=== PATIENT | male | born 1980 | race Caucasian/White ===

== ENCOUNTER 2017-09-11 20:24 | Inpatient (IN) | payer SELFPAY ==
[~2017-09-11] VITALS: Ht 188 cm; Wt 95.2 kg
[~2017-09-11 20:24] MED LIST: ETHA400 PO; ISON100I IM; NOCURR; PYRA500 PO; PYRI50CA PO; RIFA300 PO
[2017-09-11] MEDS ORDERED: HYDROmorphone 2 MG/ML SYRINGE IVP ONE (21:45)
[2017-09-11] MEDS ORDERED: ONDANSETRON HCL 4 MG/2 ML VIAL IVP ONE (21:45)
[2017-09-11] MEDS ORDERED: SODIUM CHLORIDE 0.9% 2,000 ML IV ONE (21:45)
[2017-09-11 21:54] LABS: HEMATOCRIT 31.9 % (41-53); HEMOGLOBIN 10.6 g/dL (13.5-17.5); MEAN CORPUSCULAR HEMOGLOBIN 27.7 pg (26.0-34.0); MEAN CORPUSCULAR HGB CONC 33.1 G/dL (31.0-37.0); MEAN CORPUSCULAR VOLUME 84 fL (80-100); PLATELET COUNT (AUTO) 257 K/uL (150-450); RED BLOOD CELL COUNT(AUTO) 3.82 MIL/uL (4.50-5.90); RED CELL DISTRIBUTION WIDTH 15.4 % (11.5-14.5)
[2017-09-11 21:58] LABS: APPEARANCE,URINE CLOUDY (CLEAR); GLUCOSE, URINE (UA) NEGATIVE (NEGATIVE); KETONES,URINE NEGATIVE (NEGATIVE); LEUKOCYTE ESTERASE ,URINE LARGE (NEGATIVE); OCCULT BLOOD,URINE LARGE (NEGATIVE); PROTEIN,URINE TRACE (NEGATIVE)
[2017-09-11 22:14] LABS: WBC,URINE >100 /HPF (0-5)
[2017-09-11 22:15] LABS: SQUAMOUS EPITHELIAL CELL,UR Few /LPF (None Seen)
[2017-09-11 22:16] LABS: LACTIC ACID 1.5 mmol/L (0.4-2.0)
[2017-09-11 22:20] LABS: ANION GAP 6 mmol/L (8-16); CALCIUM, TOTAL 8.1 mg/dL (8.8-10.5); CARBON DIOXIDE 28 mmol/L (22-29); CHLORIDE 99 mmol/L (98-107); CREATININE 1.26 mg/dL (0.60-1.30); GLOMERULAR FILTR. RATE CALC > 60 mL/min (>60); POTASSIUM 4.2 mmol/L (3.5-5.1); SODIUM SERUM 133 mmol/L (136-145); UREA NITROGEN, BLOOD 16 mg/dL (7-18)
[2017-09-11 22:25] LABS: ALANINE AMINOTRANSFERASE 39 U/L (12-78); ALBUMIN 2.4 g/dL (3.4-5.0); ASPARTATE AMINOTRANSFERASE 34 U/L (15-37); BILIRUBIN,TOTAL 0.2 mg/dL (0.1-1.0); TOTAL PROTEIN, SERUM 9.2 g/dL (6.4-8.2)
[2017-09-11 22:26] LABS: BAND NEUTROPHILS % (MANUAL) 16 % (1-5); LYMPHOCYTES % (MANUAL) 12 % (22-44); TOTAL CELLS COUNTED 100
[2017-09-11] MEDS ORDERED: OxyCODONE HCL/ACETAMINOPHEN 5-325 MG TABLET PO PRN (22:30)
[2017-09-11] MEDS ORDERED: LIDOCAINE HCL 1% 10 ML VIAL INJ ONE (22:30)
[2017-09-11] MEDS ORDERED: LIDOCAINE HCL 1% 20 ML VIAL INJ ONE (22:30)
[2017-09-11] MEDS ORDERED: SODIUM CHLORIDE 0.9% 1,000 ML IV ONE (22:30)
[2017-09-11] MEDS ORDERED: ALBUTEROL SULFATE 2.5 MG/0.5 ML NEB SOLUTION NEB PRN (22:30)
[2017-09-11] MEDS ORDERED: MAGNESIUM HYDROXIDE SUSPENSION 30 ML UDCUP PO PRN (22:30)
[2017-09-11] MEDS ORDERED: MORPHINE SULFATE 2 MG/ML SYRINGE IVP PRN (22:30)
[2017-09-11] MEDS ORDERED: ACETAMINOPHEN 325 MG TABLET PO PRN (22:30)
[2017-09-11] MEDS: CefTRIAXone SODIUM 2 GM in DEXTROSE 5%-WATER 50 ML IV SCH (22:43)
[2017-09-11] MEDS: SODIUM CHLORIDE 0.9% 1,000 ML IV SCH (22:44)
[2017-09-11 23:26] LABS: GLUCOSE, CSF 70 mg/dL (50-80); TOTAL PROTEIN, CSF 35 mg/dL (15-45)
[2017-09-12] VITALS (7 sets, daily range): BP systolic 103–134; BP diastolic 65–80
[2017-09-12] LABS: APPEARANCE,CSF CLEAR (CLEAR); COLOR,CSF COLORLESS (COLORLESS)
[2017-09-12] MEDS ORDERED: -PHARMACY VACCINE NOTE- MISC ONE ×2 (02:15)
[2017-09-12] MEDS ORDERED: INFLUENZA VIRUS VACCINE QVS 2017-18 (3YR+)/PF 60 MCG/0.5 ML SYRINGE IM ONE (02:15)
[2017-09-12] MEDS: SODIUM CHLORIDE 0.9% 1,000 ML IV SCH ×3 (06:30→22:54)
[2017-09-12 06:51] LABS: ANION GAP 7 mmol/L (8-16); CARBON DIOXIDE 26 mmol/L (22-29); CHLORIDE 102 mmol/L (98-107); GLOMERULAR FILTR. RATE CALC > 60 mL/min (>60); POTASSIUM 3.9 mmol/L (3.5-5.1); SODIUM SERUM 135 mmol/L (136-145); UREA NITROGEN, BLOOD 10 mg/dL (7-18)
[2017-09-12] MEDS: DOCUSATE SODIUM 100 MG CAPSULE PO SCH ×2 (09:23→20:55)
[2017-09-12] MEDS: PANTOPRAZOLE SODIUM 40 MG DR TABLET PO SCH (09:24)
[2017-09-12 10:57] LABS: BASOPHILS % (AUTO) 0.1 % (0.0-2.0); EOSINOPHILS % (AUTO) 0.3 % (1.0-6.0); HEMATOCRIT 31.1 % (41-53); HEMOGLOBIN 10.2 g/dL (13.5-17.5); LYMPHOCYTES # (AUTO) 1.4 K/uL (1.0-4.8); LYMPHOCYTES % (AUTO) 14.3 % (22.0-44.0); MEAN CORPUSCULAR HEMOGLOBIN 27.7 pg (26.0-34.0); MEAN CORPUSCULAR HGB CONC 32.9 G/dL (31.0-37.0); MEAN CORPUSCULAR VOLUME 84 fL (80-100); MONOCYTES # (AUTO) 0.3 K/uL (0.1-1.0); MONOCYTES % (AUTO) 3.5 % (2.0-9.0); NEUTROPHILS # (AUTO) 8.3 K/uL (1.8-7.7); NEUTROPHILS % (AUTO) 81.8 % (40.0-70.0); PLATELET COUNT (AUTO) 251 K/uL (150-450); RED BLOOD CELL COUNT(AUTO) 3.71 MIL/uL (4.50-5.90); RED CELL DISTRIBUTION WIDTH 15.5 % (11.5-14.5); WHITE BLOOD COUNT (AUTO) 10.1 K/uL (4.5-11.0)
[2017-09-12] MEDS: CefTRIAXone SODIUM 2 GM in DEXTROSE 5%-WATER 50 ML IV SCH (22:54)
[2017-09-13 04:41] VITALS: BP 103/56
[2017-09-13 08:18] VITALS: BP 121/80
[2017-09-13] MEDS: PANTOPRAZOLE SODIUM 40 MG DR TABLET PO SCH (09:51)
[2017-09-13] MEDS: SODIUM CHLORIDE 0.9% 1,000 ML IV SCH ×3 (09:51→22:33)
[2017-09-13] MEDS: DOCUSATE SODIUM 100 MG CAPSULE PO SCH ×2 (09:51→20:50)
[2017-09-13 11:37] VITALS: BP 117/74
[2017-09-13 15:57] VITALS: BP 109/72
[2017-09-13 19:34] VITALS: BP 102/70
[2017-09-13] MEDS: CefTRIAXone SODIUM 2 GM in DEXTROSE 5%-WATER 50 ML IV SCH (22:34)
[2017-09-13 23:33] VITALS: BP 104/64
[2017-09-14] MEDS ORDERED: VANCOMYCIN HCL 1 GM/D5% WATER 200 ML IV ONE
[2017-09-14 04:46] VITALS: BP 104/58
[2017-09-14] MEDS: SODIUM CHLORIDE 0.9% 1,000 ML IV SCH (06:30)
[2017-09-14 06:55] LABS: ANION GAP 8 mmol/L (8-16); CALCIUM, TOTAL 8.8 mg/dL (8.8-10.5); CARBON DIOXIDE 27 mmol/L (22-29); CHLORIDE 102 mmol/L (98-107); CREATININE 1.08 mg/dL (0.60-1.30); GLOMERULAR FILTR. RATE CALC > 60 mL/min (>60); POTASSIUM 3.9 mmol/L (3.5-5.1); SODIUM SERUM 137 mmol/L (136-145); UREA NITROGEN, BLOOD 14 mg/dL (7-18)
[2017-09-14 07:50] VITALS: BP 119/65
[2017-09-14] MEDS: PANTOPRAZOLE SODIUM 40 MG DR TABLET PO SCH (09:10)
[2017-09-14] MEDS: DOCUSATE SODIUM 100 MG CAPSULE PO SCH ×2 (09:10→21:00)
[2017-09-14] MEDS: VANCOMYCIN HCL 1.25 GM in DEXTROSE 5%-WATER 250 ML IV SCH ×2 (09:10→15:31)
[2017-09-14 12:51] VITALS: BP 118/57
[2017-09-14] MEDS ORDERED: ISON300 PO (13:39)
[2017-09-14 16:28] VITALS: BP 104/60
[2017-09-14 17:00] LABS: PERCENT CD4 CELLS 19.9 % (30.8-58.5)
[2017-09-14 20:01] VITALS: BP 101/64
[2017-09-14] MEDS ORDERED: WATER IV SCH (23:00)
[2017-09-14] MEDS ORDERED: CEFTRIAXONE SODIUM IV SCH (23:00)
[2017-09-14] MEDS ORDERED: DEXTROSE 5% IV SCH (23:00)
[2017-09-14] MEDS: CefTRIAXone SODIUM 2 GM in DEXTROSE 5%-WATER 50 ML IV SCH (23:02)
[2017-09-15] VITALS (7 sets, daily range): BP systolic 96–116; BP diastolic 61–75
[2017-09-15 06:53] LABS: ANION GAP 8 mmol/L (8-16); CARBON DIOXIDE 28 mmol/L (22-29); CHLORIDE 101 mmol/L (98-107); CREATININE 1.08 mg/dL (0.60-1.30); GLOMERULAR FILTR. RATE CALC > 60 mL/min (>60); SODIUM SERUM 137 mmol/L (136-145); UREA NITROGEN, BLOOD 21 mg/dL (7-18)
[2017-09-15] MEDS: PANTOPRAZOLE SODIUM 40 MG DR TABLET PO SCH (08:30)
[2017-09-15] MEDS: CefTRIAXone SODIUM 2 GM in DEXTROSE 5%-WATER 50 ML IV SCH ×2 (08:30→19:57)
[2017-09-15] MEDS: DOCUSATE SODIUM 100 MG CAPSULE PO SCH ×2 (08:30→19:57)
[2017-09-15 09:15] LABS: ABSOLUTE CD4 COUNT 318 /uL (359-1519); LYMPHS % FOR CD4 COUNT 24 % (Not Estab.); LYMPHS ABS FOR CD4 COUNT 1.6 x10E3/uL (0.7-3.1); WBC FOR CD4 COUNT 6.6 x10E3/uL (3.4-10.8)
[2017-09-16 05:09] VITALS: BP 97/64
[2017-09-16] MEDS: CefTRIAXone SODIUM 2 GM in DEXTROSE 5%-WATER 50 ML IV SCH ×2 (07:53→20:12)
[2017-09-16] MEDS: DOCUSATE SODIUM 100 MG CAPSULE PO SCH ×2 (07:54→21:00)
[2017-09-16] MEDS: PANTOPRAZOLE SODIUM 40 MG DR TABLET PO SCH (07:54)
[2017-09-16 08:12] VITALS: BP 108/62
[2017-09-16 08:44] LABS: ANION GAP 6 mmol/L (8-16); CALCIUM, TOTAL 8.7 mg/dL (8.8-10.5); CARBON DIOXIDE 31 mmol/L (22-29); CHLORIDE 100 mmol/L (98-107); CREATININE 1.13 mg/dL (0.60-1.30); GLOMERULAR FILTR. RATE CALC > 60 mL/min (>60); POTASSIUM 4.2 mmol/L (3.5-5.1); SODIUM SERUM 137 mmol/L (136-145); UREA NITROGEN, BLOOD 21 mg/dL (7-18)
[2017-09-16 11:31] VITALS: BP 95/58
[2017-09-16 15:40] VITALS: BP 101/63
[2017-09-16 20:07] VITALS: BP 115/64
[2017-09-17 00:03] VITALS: BP 109/58
[2017-09-17 04:45] VITALS: BP 108/69
[2017-09-17 06:28] LABS: BASOPHILS # (AUTO) 0.05 K/uL (0.00-0.20); BASOPHILS % (AUTO) 1.2 % (0.0-2.0); EOSINOPHILS # (AUTO) 0.12 K/uL (0.00-0.70); EOSINOPHILS % (AUTO) 2.93 % (1.0-6.0); LYMPHOCYTES # (AUTO) 1.5 K/uL (1.0-4.8); LYMPHOCYTES % (AUTO) 35.7 % (22.0-44.0); MEAN CORPUSCULAR HEMOGLOBIN 26.5 pg (26.0-34.0); MEAN CORPUSCULAR HGB CONC 31.5 G/dL (31.0-37.0); MEAN CORPUSCULAR VOLUME 84 fL (80-100); MONOCYTES # (AUTO) 0.4 K/uL (0.1-1.0); NEUTROPHILS # (AUTO) 2.2 K/uL (1.8-7.7); NEUTROPHILS % (AUTO) 51.2 % (40.0-70.0); PLATELET COUNT (AUTO) 144 K/uL (150-450); RED BLOOD CELL COUNT(AUTO) 4.15 MIL/uL (4.50-5.90); RED CELL DISTRIBUTION WIDTH 15.6 % (11.5-14.5); WHITE BLOOD COUNT (AUTO) 4.2 K/uL (4.5-11.0)
[2017-09-17 06:57] LABS: ANION GAP 5 mmol/L (8-16); CALCIUM, TOTAL 8.3 mg/dL (8.8-10.5); CARBON DIOXIDE 31 mmol/L (22-29); CHLORIDE 101 mmol/L (98-107); CREATININE 1.11 mg/dL (0.60-1.30); GLOMERULAR FILTR. RATE CALC > 60 mL/min (>60); POTASSIUM 4.2 mmol/L (3.5-5.1); SODIUM SERUM 137 mmol/L (136-145); UREA NITROGEN, BLOOD 20 mg/dL (7-18)
[2017-09-17 08:11] VITALS: BP 104/57
[2017-09-17] MEDS: CefTRIAXone SODIUM 2 GM in DEXTROSE 5%-WATER 50 ML IV SCH ×2 (09:14→21:52)
[2017-09-17] MEDS: DOCUSATE SODIUM 100 MG CAPSULE PO SCH ×2 (09:14→21:53)
[2017-09-17] MEDS: PANTOPRAZOLE SODIUM 40 MG DR TABLET PO SCH (09:14)
[2017-09-17 11:52] VITALS: BP 96/50
[2017-09-17 15:54] VITALS: BP 109/67
[2017-09-17 20:08] VITALS: BP 123/69
[2017-09-18 00:03] VITALS: BP 102/63
[2017-09-18 04:42] VITALS: BP 116/66
[2017-09-18 06:21] LABS: ANION GAP 6 mmol/L (8-16); CALCIUM, TOTAL 8.4 mg/dL (8.8-10.5); CARBON DIOXIDE 29 mmol/L (22-29); CHLORIDE 102 mmol/L (98-107); CREATININE 1.07 mg/dL (0.60-1.30); GLOMERULAR FILTR. RATE CALC > 60 mL/min (>60); POTASSIUM 4.2 mmol/L (3.5-5.1); SODIUM SERUM 137 mmol/L (136-145); UREA NITROGEN, BLOOD 19 mg/dL (7-18)
[2017-09-18 07:12] VITALS: BP 110/58
[2017-09-18] MEDS: DOCUSATE SODIUM 100 MG CAPSULE PO SCH (09:41)
[2017-09-18] MEDS: CefTRIAXone SODIUM 2 GM in DEXTROSE 5%-WATER 50 ML IV SCH (09:41)
[2017-09-18] MEDS: PANTOPRAZOLE SODIUM 40 MG DR TABLET PO SCH (09:41)
[2017-09-18 11:49] VITALS: BP 112/60
== END 2017-09-18 13:55 | disposition home or self-care (01) | DRG 871 ==
LOC: EMS 20:35 → 6N 22:30
PROVIDERS: ADMIT Internal Medicine; ATTEND Internal Medicine
DX: A40.3 Sepsis due to Streptococcus pneumoniae (principal); R65.21 Severe sepsis with septic shock; G92 Toxic encephalopathy; N39.0 Urinary tract infection, site not specified; E86.0 Dehydration; F15.10 Other stimulant abuse, uncomplicated; F17.200 Nicotine dependence, unspecified, uncomplicated; J44.9 Chronic obstructive pulmonary disease, unspecified; Z86.11 Personal history of tuberculosis; Z91.19 Patient's noncompliance with other medical treatment and regimen; Z79.899 Other long term (current) drug therapy
CPT/HCPCS: 62270; 70450; 82945; 83605; 84157; 86361; 87015; 87040; 87070; 87086; 87205; 89051; 90471; 93306; 96361; 96374; 96375; 99291; J0696; J1170; J2405; J3370; J3490; J7030; J7060

== ENCOUNTER 2018-06-27 09:04 | Inpatient (IN) | payer SELFPAY ==
[~2018-06-27] VITALS: Ht 188 cm; Wt 87.8 kg
[2018-06-27] MEDS ORDERED: BARIUM SULFATE 0.1% SUSPENSION 450 ML BOTTLE PO ONE (09:30)
[2018-06-27] MEDS ORDERED: ONDANSETRON HCL 4 MG/2 ML VIAL IVP ONE (09:30)
[2018-06-27] MEDS ORDERED: KETOROLAC TROMETHAMINE 30 MG/ML VIAL IVP ONE (09:30)
[2018-06-27] MEDS ORDERED: SODIUM CHLORIDE 0.9% 1,000 ML IV ONE ×3 (09:30→12:45)
[2018-06-27 09:52] LABS: BASOPHILS % (AUTO) 0.1 % (0.0-2.0); EOSINOPHILS % (AUTO) 0.2 % (1.0-6.0); HEMOGLOBIN 11.2 g/dL (13.5-17.5); LYMPHOCYTES # (AUTO) 1.1 K/uL (1.0-4.8); LYMPHOCYTES % (AUTO) 19.4 % (22.0-44.0); MEAN CORPUSCULAR HEMOGLOBIN 27.2 pg (26.0-34.0); MEAN CORPUSCULAR HGB CONC 33.1 G/dL (31.0-37.0); MEAN CORPUSCULAR VOLUME 82 fL (80-100); MONOCYTES # (AUTO) 0.7 K/uL (0.1-1.0); MONOCYTES % (AUTO) 12.6 % (2.0-9.0); NEUTROPHILS # (AUTO) 3.7 K/uL (1.8-7.7); NEUTROPHILS % (AUTO) 67.7 % (40.0-70.0); PLATELET COUNT (AUTO) 219 K/uL (150-450); RED BLOOD CELL COUNT(AUTO) 4.13 MIL/uL (4.50-5.90); RED CELL DISTRIBUTION WIDTH 16.4 % (11.5-14.5)
[2018-06-27] MEDS ORDERED: IOVERSOL 350 MG/ML 150 ML VIAL ONE (09:52)
[2018-06-27] MEDS ORDERED: SODIUM CHLORIDE 0.9% 100 ML ONE (09:52)
[2018-06-27 10:05] LABS: ANION GAP 7 mmol/L (8-16); CALCIUM, TOTAL 8.3 mg/dL (8.8-10.5); CARBON DIOXIDE 26 mmol/L (22-29); CHLORIDE 98 mmol/L (98-107); CREATININE 1.26 mg/dL (0.60-1.30); GLOMERULAR FILTR. RATE CALC > 60 mL/min (>60); GLUCOSE,RANDOM 114 mg/dL (70-110); POTASSIUM 3.3 mmol/L (3.5-5.1); SODIUM SERUM 131 mmol/L (136-145); UREA NITROGEN, BLOOD 9 mg/dL (7-18)
[2018-06-27 10:11] LABS: ALANINE AMINOTRANSFERASE 12 U/L (12-78); ALBUMIN 2.4 g/dL (3.4-5.0); ALKALINE PHOSPHATASE 64 U/L (46-116); ASPARTATE AMINOTRANSFERASE 12 U/L (15-37); BILIRUBIN,TOTAL 0.3 mg/dL (0.1-1.0); LIPASE 253 U/L (73-393); TOTAL PROTEIN, SERUM 8.4 g/dL (6.4-8.2)
[2018-06-27] MEDS ORDERED: MORPHINE SULFATE 4 MG/ML SYRINGE IVP PRN ×2 (13:45→19:15)
[2018-06-27] MEDS ORDERED: ONDANSETRON HCL 4 MG/2 ML VIAL IVP PRN ×2 (13:45→19:15)
[2018-06-27 14:17] LABS: APPEARANCE,URINE CLOUDY (CLEAR); BILIRUBIN,URINE NEGATIVE (NEGATIVE); GLUCOSE, URINE (UA) NEGATIVE (NEGATIVE); KETONES,URINE NEGATIVE (NEGATIVE); LEUKOCYTE ESTERASE ,URINE LARGE (NEGATIVE); NITRATE,URINE POSITIVE (NEGATIVE); OCCULT BLOOD,URINE LARGE (NEGATIVE); PH,URINE 6.5 (5.0-8.0); PROTEIN,URINE TRACE (NEGATIVE); UROBILINOGEN,URINE 0.2 mg/dL (<=1.0)
[2018-06-27 14:39] LABS: BACTERIA,URINE Moderate /HPF (None Seen); SQUAMOUS EPITHELIAL CELL,UR Few /LPF (None Seen); WBC,URINE >100 /HPF (0-5)
[2018-06-27] MEDS ORDERED: MAGNESIUM OXIDE 400 MG TABLET PO PRN (19:15)
[2018-06-27] MEDS ORDERED: MAGNESIUM SULFATE 4 GM/WATER 100 ML IV PRN (19:15)
[2018-06-27] MEDS ORDERED: MAGNESIUM SULFATE 2 GM/WATER 50 ML IV PRN (19:15)
[2018-06-27] MEDS ORDERED: 0.9% SODIUM CHLORIDE 10 ML SYRINGE IVP PRN (19:15)
[2018-06-27] MEDS ORDERED: POTASSIUM CHL 10 MEQ/WATER 50 ML IV PRN (19:15)
[2018-06-27 20:30] VITALS: BP 114/74
[2018-06-27] MEDS: MVI, ADULT NO.1 WITH VIT K 10 ML in SODIUM CHLORIDE 0.9% 1,000 ML IV SCH ×2 (20:41)
[2018-06-27] MEDS: TAMSULOSIN HCL 0.4 MG CAPSULE PO SCH (20:41)
[2018-06-27] MEDS: PANTOPRAZOLE SODIUM 40 MG/VIAL IVP SCH (20:41)
[2018-06-27] MEDS: POTASSIUM CHLORIDE 20 MEQ ER TABLET PO PRN (20:41)
[2018-06-27] MEDS: MORPHINE SULFATE 2 MG/ML SYRINGE IVP PRN (21:04)
[2018-06-28 00:20] VITALS: BP 140/75
[2018-06-28 04:52] VITALS: BP 113/71
[2018-06-28 06:17] LABS: BASOPHILS % (AUTO) 0.2 % (0.0-2.0); EOSINOPHILS % (AUTO) 1.1 % (1.0-6.0); HEMATOCRIT 31.3 % (41-53); HEMOGLOBIN 10.3 g/dL (13.5-17.5); LYMPHOCYTES # (AUTO) 1.2 K/uL (1.0-4.8); LYMPHOCYTES % (AUTO) 25.9 % (22.0-44.0); MEAN CORPUSCULAR HEMOGLOBIN 27.1 pg (26.0-34.0); MEAN CORPUSCULAR HGB CONC 32.9 G/dL (31.0-37.0); MEAN CORPUSCULAR VOLUME 83 fL (80-100); MONOCYTES # (AUTO) 0.6 K/uL (0.1-1.0); NEUTROPHILS # (AUTO) 2.9 K/uL (1.8-7.7); NEUTROPHILS % (AUTO) 60.8 % (40.0-70.0); PLATELET COUNT (AUTO) 140 K/uL (150-450); RED BLOOD CELL COUNT(AUTO) 3.79 MIL/uL (4.50-5.90); RED CELL DISTRIBUTION WIDTH 16.2 % (11.5-14.5)
[2018-06-28] MEDS: MORPHINE SULFATE 2 MG/ML SYRINGE IVP PRN (06:24)
[2018-06-28 06:32] LABS: ANION GAP 9 mmol/L (8-16); CALCIUM, TOTAL 7.8 mg/dL (8.8-10.5); CARBON DIOXIDE 22 mmol/L (22-29); CHLORIDE 106 mmol/L (98-107); CREATININE 1.03 mg/dL (0.60-1.30); GLOMERULAR FILTR. RATE CALC > 60 mL/min (>60); GLUCOSE,RANDOM 78 mg/dL (70-110); POTASSIUM 3.4 mmol/L (3.5-5.1); SODIUM SERUM 137 mmol/L (136-145); UREA NITROGEN, BLOOD 6 mg/dL (7-18)
[2018-06-28] MEDS: POTASSIUM CHLORIDE 20 MEQ ER TABLET PO PRN (07:04)
[2018-06-28 07:43] VITALS: BP 114/70
[2018-06-28] MEDS: TAMSULOSIN HCL 0.4 MG CAPSULE PO SCH (08:49)
[2018-06-28] MEDS: PANTOPRAZOLE SODIUM 40 MG/VIAL IVP SCH (08:50)
[2018-06-28] MEDS: MVI, ADULT NO.1 WITH VIT K 10 ML in SODIUM CHLORIDE 0.9% 1,000 ML IV SCH ×2 (08:50)
== END 2018-06-28 10:35 | disposition left against medical advice (07) | DRG 690 ==
LOC: EMS 09:05 → 4E 18:40
PROVIDERS: ADMIT Hospitalist; ATTEND Hospitalist
DX: N13.6 Pyonephrosis (principal); F15.10 Other stimulant abuse, uncomplicated; K52.9 Noninfective gastroenteritis and colitis, unspecified; F17.210 Nicotine dependence, cigarettes, uncomplicated; Z21 Asymptomatic human immunodeficiency virus [HIV] infection status; Z86.11 Personal history of tuberculosis; Z91.19 Patient's noncompliance with other medical treatment and regimen
CPT/HCPCS: 74177; 83735; 87086; 96361; 96374; 96375; 99285; C9113; J1885; J2270; J2405; J3490; J7030; J7050